=== PATIENT | male | born 2000 | race Caucasian/White ===

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

== ENCOUNTER 2022-10-20 12:10 | Emergency (ER) | payer OTHER ==
[~2022-10-20] VITALS: Ht 175.3 cm; Wt 70.3 kg
[~2022-10-20 12:10] MED LIST: IBUPROFEN 600 MG TABLET
[2022-10-20 12:14] VITALS: BP 132/78
[2022-10-20] MEDS ORDERED: PROCHLORPERAZINE 10 MG/2 ML VIAL IVP ONE (13:15)
[2022-10-20] MEDS ORDERED: NACL 0.9% 1,000 ML IV ONE (13:15)
[2022-10-20] MEDS ORDERED: diphenhydrAMINE 50 MG/ML VIAL IVP ONE (13:15)
[2022-10-20] MEDS ORDERED: KETOROLAC 30 MG/ML VIAL IVP ONE (13:15)
--- NOTE | 2022-10-20 13:20 | NUR ---
22YO MALE PT C/O CONSTANT THROBBING 8/10 HEADACHE X1WEEK. REPORTS GOING TO PCP W/O RELIEF AFTER RX GIVEN FOR SINUSITIS. DENIES TAKING MEDICATION, CHNAGE IN VISION N/V/D, CHEST PAIN OR SOB. PT AAOX4, RESPIRATIONS EVEN AND UNLABORED. HOB POSITIONED PER COMFORT/ HX:ALICIA PACKER
--- NOTE | 2022-10-20 13:30 | NUR ---
22M presents to ED with c/o headaches x1 week. Pt reports a constant, throbbing like, 8/10 nonradiating head pain. Pt denies trauma/injury;reports taking Ibuprofen with mild relief, and tylenol with no relief. Pt reports intermittent dizziness, denies n/v/d, fevers, chills or vision changes. Pt changed into gown and placed on bedside monitor.
--- NOTE | 2022-10-20 13:34 | NUR ---
pt swabbed for covid(jesús). walked and handed to lab
[2022-10-20 14:19] VITALS: BP 116/74
--- NOTE | 2022-10-20 14:55 | NUR ---
IV removed, catheter intact and site benign. Applied folded 4x4 gauze and tape to stop bleeding.
--- NOTE | 2022-10-20 14:57 | NUR ---
Patient discharged with v/s stable. Written and verbal after care instructions FOR SINUS HEADACHE given and explained. Patient verbalized understanding. Ambulatory with steady gait. All questions addressed prior to discharge. Advised to follow up with PMD.
--- NOTE | 2022-10-20 14:58 | NUR ---
The patient's care was reviewed and supervised by Yakov Espinoza RN.
== END 2022-10-20 14:52 | disposition home or self-care (01) ==
LOC: MED 12:10
DX: J32.9 Chronic sinusitis, unspecified (principal); Z20.822 Contact with and (suspected) exposure to COVID-19
CPT/HCPCS: 70450; 87426; 96361; 96374; 96375; 99285; J0780; J1200; J1885; J7030